=== PATIENT | female | born 1990 | race Caucasian/White ===

== ENCOUNTER 2017-11-21 08:41 | Emergency (ER) | payer SELFPAY ==
[~2017-11-21] VITALS: Ht 162.6 cm; Wt 71.8 kg
[~2017-11-21 08:41] MED LIST: MOTRIN IB200 M1 PO; PROVENTIL0.09 MG/A1; SULFAMETH/TRIME1 TA2 PO
[2017-11-21] MEDS ORDERED: ALBUTEROL2.5 MG/3 M IH (09:20)
[2017-11-21] MEDS ORDERED: ZITHROMAX 250M250 MG PO (09:20)
[2017-11-21] MEDS ORDERED: TUSSIONEX PENN115 ML PO (09:20)
[2017-11-21 09:45] VITALS: BP 132/70
== END 2017-11-21 09:45 | disposition home or self-care (01) ==
LOC: ED 08:41
DX: J20.9 Acute bronchitis, unspecified (principal); F17.200 Nicotine dependence, unspecified, uncomplicated; Z88.0 Allergy status to penicillin

== ENCOUNTER 2018-10-15 14:02 | Emergency (ER) | payer SELFPAY ==
[~2018-10-15] VITALS: Ht 162.6 cm; Wt 65.9 kg
[~2018-10-15 14:02] MED LIST changes: +ALBUTEROL2.5 MG/3 M IH; +TUSSIONEX PENN115 ML PO; +ZITHROMAX 250M250 MG PO
[2018-10-15 16:15] LABS: URINE COLOR YELLOW
[2018-10-15 16:16] LABS: PH-URINE 5.5 (5.0 - 8.0); URINE APPEARANCE HAZY; URINE BILIRUBIN NEGATIVE (NEGATIVE); URINE BLOOD NEGATIVE (NEGATIVE); URINE GLUCOSE NEGATIVE (NEGATIVE); URINE KETONE NEGATIVE (NEGATIVE); URINE LEUKOCYTE ESTERASE 1+ (NEGATIVE); URINE NITRATE NEGATIVE (NEGATIVE); URINE PROTEIN(semi-quant) TRACE mg/dL (NEGATIVE); URINE UROBILINOGEN NORMAL (NORMAL)
[2018-10-15] MEDS ORDERED: NORCO 325 MG-51 TA1 PO (16:53)
[2018-10-15 17:08] VITALS: BP 128/70
== END 2018-10-15 17:08 | disposition home or self-care (01) ==
LOC: ED 14:02
PROVIDERS: Nurse Practitioner Primary Care
DX: M54.41 Lumbago with sciatica, right side (principal); F17.210 Nicotine dependence, cigarettes, uncomplicated; Z88.0 Allergy status to penicillin; Z98.890 Other specified postprocedural states
CPT/HCPCS: J1885; J2270

== ENCOUNTER → 2019-11-19 | Outpatient (CLI) | payer SELFPAY ==
[2019-10-28 12:05] VITALS: BP 110/72
[~2019-11-19] MED LIST changes: +HYDROCODONE AN473 M1 PO; +NORCO 325 MG-51 TA1 PO
== END ==
LOC: LAB 10:38
DX: J02.9 Acute pharyngitis, unspecified (principal); R07.89 Other chest pain; R06.02 Shortness of breath; Z20.828 Contact with and (suspected) exposure to other viral communicable diseases

== ENCOUNTER 2020-05-08 10:56 | Emergency (ER) | payer SELFPAY ==
[2020-05-08 11:06] VITALS: BP 117/73
[2020-05-08] MEDS ORDERED: CYCLOBENZAPRINE10 M1 PO (13:22)
== END 2020-05-08 13:32 | disposition home or self-care (01) ==
LOC: ED 10:56
DX: M54.31 Sciatica, right side (principal); F17.210 Nicotine dependence, cigarettes, uncomplicated; Z88.1 Allergy status to other antibiotic agents; X50.1XXA Overexertion from prolonged static or awkward postures, initial encounter
CPT/HCPCS: J2360